=== PATIENT | female | born 1960 | race Caucasian/White ===

== ENCOUNTER 2019-03-21 11:24 | Emergency (ER) | payer BC ==
[2019-03-21 11:44] VITALS: BP 114/75
--- NOTE | 2019-03-21 11:49 | UC ---
Abdominal Pain Female HPI - HPI Summary HPI Summary: 58 yo female presents with diarrhea. She tells me that on 03/19/19 she returned from [place] and while in the [place] developed generalized abdominal cramping and diarrhea. Since that time she has had about 15-20 watery stools a day. She states she was very careful while in [place] and did not eat ice or drink non-bottled water. She went with a friend and her friend is not sick. She has been taking immodium with little relief. She has a decreased appetite and slight nausea. Denies fever, chills, vomiting, blood in stool, dysuria. - History of Current Complaint Chief Complaint: UCGI Stated Complaint: DIARRHEA Time Seen by Provider: 03/21/19 11:49 Hx Obtained From: Patient Hx Last Menstrual Period: post-menopausal (2007) Onset/Duration: Sudden Onset Severity Currently: None Pain Intensity: 0 Allergies/Adverse Reactions: Allergies Allergy/AdvReac Type Severity Reaction Status Date / Time No Known Allergies Allergy Verified 03/21/19 11:45 Home Medications: Home Medications Loperamide CAP* [Imodium CAP*] 2 mg PO Q4H PRN 03/21/19 [History Confirmed 03/21] PMH/Surg Hx/FS Hx/Imm Hx GI/ History: Gastroesophageal Reflux - Surgical History Surgical History: Yes Surgery Procedure, Year, and Place: gallbladder, uterine ablation. csection x2 - Family History Known Family History: Positive: Other - PE, Alzheimer's, cancer - Social History Lives: With Family Alcohol Use: Daily Alcohol Amount: couple glasses of wine Substance Use Type: None Smoking Status (MU): Former Smoker Have You Smoked in the Last Year: No - Immunization History Most Recent Influenza Vaccination: 03/15/14 Most Recent Tetanus Shot: unknown 3 to 5 years Most Recent Pneumonia Vaccination: never Review of Systems All Other Systems Reviewed And Are Negative: No Constitutional: Positive: Negative Skin: Positive: Negative Eyes: Positive: Negative ENT: Positive: Negative Respiratory: Positive: Negative Cardiovascular: Positive: Negative Gastrointestinal: Positive: Diarrhea, Nausea Genitourinary: Positive: Negative Motor: Positive: Negative Neurovascular: Positive: Negative Neurological: Positive: Negative Psychological: Positive: Negative Physical Exam - Summary Physical Exam Summary: GENERAL: NAD. WDWN. No pain distress. SKIN: No rashes, sores, lesions, or open wounds. NECK: Supple. Nontender. No lymphadenopathy. CHEST: CTAB. No r/r/w. No accessory muscle use. Breathing comfortably and in no distress. CV: RRR. Pulses intact. Cap refill <2seconds ABDOMEN: Soft. NTTP. No distention or guarding. No organomegaly. No CVA tenderness. Hyperactive bowel sounds NEURO: Alert. PSYCH: Age appropriate behavior. Triage Information Reviewed: Yes Vital Signs: Initial Vital Signs Temp 98.2 F 03/21/19 11:39 Pulse 73 03/21/19 11:39 Resp 16 03/21/19 11:39 BP 114/75 03/21/19 11:39 Pulse Ox 99 03/21/19 11:39 Laboratory Tests 03/21/19 12:19 POC Urine Color Dark yellow POC Urine Clarity Clear POC Urine pH 6.0 POC Ur Specif Celina >= 1.030 POC Urine Protein Trace A POC Ur Glucose (UA) Negative POC Urine Ketones Negative POC Urine Blood Trace-intact A POC Urine Nitrite Negative POC Urine Bilirubin 1+ A POC Urine Urobilinogen 0.2 POC U Leukocyte Esteras Negative Vital Signs Reviewed: Yes Abd Pain Female Course/Dx - Course Course Of Treatment: UA negative. Pt was able to produce a stool specimen in the clinic, thus will send this for culture and treat accordingly based on results. Will rx for zofran for her nausea/decreased appetite. - Differential Dx/Diagnosis Provider Diagnosis: Diarrhea Discharge ED - Sign-Out/Discharge Documenting (check all that apply): Patient Departure All imaging exams completed and their final reports reviewed: No Studies - Discharge Plan Condition: Stable Disposition: HOME Prescriptions: Ondansetron ODT TAB* [Zofran 4 MG Odt TAB*] 4 mg PO Q8H PRN #12 tab.odt PRN Reason: Nausea Patient Education Materials: Traveler's Diarrhea (ED) Referrals: Leticia Padilla MD [Primary Care Provider] - Additional Instructions: If you develop a fever, shortness of breath, chest pain, new or worsening symptoms - please call your PCP or go to the ED immediately. 1) Drink plenty of fluids and advance your diet as tolerated starting with a BRAT diet - bananas, rice, applesauce, toast 2) We shoulder have some results of your stool sample tomorrow and will direct treatment based on these results - Billing Disposition and Condition Condition: STABLE Disposition: Home
== END 2019-03-21 12:20 | disposition home or self-care (01) ==
LOC: UCEAST 11:24
DX: R19.7 Diarrhea, unspecified (principal); R11.0 Nausea; R10.84 Generalized abdominal pain; Z87.891 Personal history of nicotine dependence
CPT/HCPCS: 81003; 87045; 87046; 87425; 87493; 87899; 99212; G0463